=== PATIENT | male | born 1985 | race Hispanic/Latino ===

== ENCOUNTER 2019-09-04 17:14 | Emergency (ER) | payer SELFPAY ==
--- NOTE | 2019-09-04 17:44 | Emergency Department Report ---
Chief Complaint: Back Pain/Injury Stated Complaint: BACK PAIN - HPI History of Present Illness: 34-year-old -[place] male presents to the emergency room for back pain x3 to 4 days. 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 Patient reports he has not taken anything for pain. Patient denies any urinary or bowel incontinence. Patient denies any direct blow or direct injury. - Exam Physical Exam: Gen: alert oriented NAD Cardic: regular rate and rhythm no murmurs appreciated Resp: Clear to auscultation bilateral no wheezing no rales or rhonchi. Abdomen: Soft nontender nondistended normal bowel sounds. Back: Full range of motion mild paraspinal tenderness patient is carrying a book bag on his back. Ambulatory without difficulties. MSE screening note: Focused history and physical exam performed. Due to findings the following was ordered: 34-year-old -[place] male presents to the emergency room for back pain x3 to 4 days. 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 Patient reports he has not taken anything for pain. Patient denies any urinary or bowel incontinence. Patient denies any direct blow or direct injury. Recommend to take Tylenol or ibuprofen for pain management increase your fluid intake. Follow-up with your primary care provider. ED Disposition for [facility] [place] Disposition: Z-07 MED SCREENING EXAM-LEFT Is pt being admited?: No Does the pt Need Aspirin: No Condition: Stable Additional Instructions: Try taking ibuprofen Tylenol or naproxen. Use warm heat to your back. Try to get a back brace for lifting. Follow-up with your primary care provider. Referrals: [facility] [place] [Provider Group] - 3-5 Days
[2019-09-04 17:45] VITALS: BP 120/76
== END 2019-09-04 17:49 | disposition left against medical advice (07) ==
LOC: ED 17:14
DX: M54.89 Other dorsalgia (principal); Z53.21 Procedure and treatment not carried out due to patient leaving prior to being seen by health care provider